=== PATIENT | male | born 1985 | race African-American/Black ===

== ENCOUNTER 2022-04-06 07:22 | Emergency (ER) | payer OTHER ==
[~2022-04-06] VITALS: Ht 177.8 cm; Wt 98.0 kg
[2022-04-06 08:07] VITALS: BP 119/71
[2022-04-06 11:26] LABS: BASOPHILS % 0.4 % (0.0-2.0); EOSINOPHILS % 0.9 % (0.0-5.0); HEMATOCRIT. 37.4 % (42.0-52.0); HEMOGLOBIN. 12.4 g/dL (14.0-18.0); LYMPHOCYTES % 19.6 % (20.0-50.0); MEAN CORPUSCULAR HEMOGLOBIN 27.9 pg (28.0-32.0); MEAN CORPUSCULAR VOLUME 83.9 fL (80.0-94.0); MEAN PLATELET VOLUME 7.3 fl (7.4-10.4); MONOCYTES % 15.2 % (2.0-8.0); NEUTROPHILS % 63.9 % (40.0-76.0); PLATELET 300 x1000/uL (130-400); RED BLOOD CELL COUNT 4.46 mill/uL (4.7-6.1); RED CELL DISTRIBUTION WIDTH 14.2 % (11.6-14.6)
[2022-04-06 11:39] LABS: CHLORIDE 103 mEq/L (98-107)
[2022-04-06] MEDS ORDERED: MOM MT (13:11)
[2022-04-06] MEDS ORDERED: PSYL575P22 MT (13:11)
[2022-04-06] MEDS ORDERED: MAGN296S70 MT (13:11)
[2022-04-07 07:02] LABS: PLATELET ESTIMATE NORMAL
== END 2022-04-06 13:28 | disposition home or self-care (01) ==
LOC: ER 07:22
DX: K59.00 Constipation, unspecified (principal); E87.1 Hypo-osmolality and hyponatremia
CPT/HCPCS: 36415; 74176; 80053; 85025; 99284